=== PATIENT | male | born 1965 | race African-American/Black ===

== ENCOUNTER 2017-03-12 17:08 | Emergency (ER) | payer OTHER ==
[~2017-03-12] VITALS: Ht 175.2 cm; Wt 98.4 kg
[2017-03-12] MEDS ORDERED: QBRELIS1 MG/1 ML PO (17:13)
== END 2017-03-12 18:09 | disposition home or self-care (01) ==
LOC: ED 17:08
DX: S05.02XA Injury of conjunctiva and corneal abrasion without foreign body, left eye, initial encounter (principal); T26.62XA Corrosion of cornea and conjunctival sac, left eye, initial encounter; F17.200 Nicotine dependence, unspecified, uncomplicated; X58.XXXA Exposure to other specified factors, initial encounter; Y93.89 Activity, other specified; Y92.9 Unspecified place or not applicable; Y99.9 Unspecified external cause status

== ENCOUNTER 2017-05-27 08:40 | Emergency (ER) | payer OTHER ==
[~2017-05-27] VITALS: Ht 175.2 cm; Wt 98.0 kg
[~2017-05-27 08:40] MED LIST: QBRELIS1 MG/1 ML PO
[2017-05-27 10:03] LABS: BASO % 0.3 % (0.0-1.0); EOS # 0.2 10*3/uL (0.0-0.4); EOS % 4.9 % (1.0-4.0); HEMOGLOBIN 14.3 g/dl (14.0-18.0); LYMPH # 1.7 10*3/uL (1.3-4.4); LYMPH % 43.8 % (27.0-41.0); MEAN CELL VOLUME 85.4 fl (80.0-94.0); MEAN CORPUSCULAR HGB 27.1 pg (27.0-31.0); MEAN CORPUSCULAR HGB CONC 31.8 g/dl (33.0-37.0); MEAN PLATELET VOLUME 11.8 fl (9.6-12.3); MONO # 0.4 10*3/uL (0.1-1.0); MONO % 11.3 % (3.0-9.0); NEUT # 1.6 10*3/uL (2.3-7.9); NEUT % 39.7 % (47.0-73.0); PLATELET COUNT AUTOMATED 177 10*3/uL (130-400); RED BLOOD COUNT 5.27 10*6/uL (4.50-5.90); RED CELL DISTRI WIDTH 15.2 % (0-14.5); WHITE BLOOD COUNT 3.9 10*3/uL (4.8-10.8)
[2017-05-27 10:20] LABS: ALBUMIN 3.3 gm/dl (3.1-4.5); BUN 13 mg/dl (7-24); CHLORIDE 106 mmol/L (98-107); CREATININE 1.34 mg/dL (0.70-1.30); MAGNESIUM 2.2 mg/dL (1.5-2.1); POTASSIUM 4.6 mmol/L (3.5-5.1); SGOT/AST 30 IU/L (3-35); SGPT/ALT 28 U/L (12-78); SODIUM 140 mmol/L (136-145); TOTAL PROTEIN 7.4 gm/dL (6.4-8.2)
[2017-05-27 10:46] LABS: ALKALINE PHOSPHATASE 118 U/L (45-117)
[2017-05-27] MEDS ORDERED: PRINIVIL10 MG PO (16:28)
== END 2017-05-27 20:08 | disposition home or self-care (01) ==
LOC: ED 08:40
PROVIDERS: Nurse Practitioner Family
DX: E07.9 Disorder of thyroid, unspecified (principal); R03.0 Elevated blood-pressure reading, without diagnosis of hypertension; F17.200 Nicotine dependence, unspecified, uncomplicated; Z98.890 Other specified postprocedural states; Z79.899 Other long term (current) drug therapy

== ENCOUNTER 2017-09-03 12:57 | Inpatient (IN) | payer OTHER ==
[2017-09-03] VITALS (8 sets, daily range): BP systolic 123–150; BP diastolic 81–103
[~2017-09-03] VITALS: Ht 177.8 cm; Wt 95.3 kg
--- NOTE | ~2017-09-03 | PR ---
[place], [place] PROGRESS NOTE NAME: GABBY PARISI UNIT #: [id number] ROOM: 415 DOCTOR: JOHN CERDA MD BIRTHDATE: [birth year] DOS: 09/06/2017 CARDIOLOGY PROGRESS NOTE SUBJECTIVE: The patient was seen in the Cardiology Department today, 09/06/2017 prior to his stress test. He is a 52-year-old man with multiple coronary risk factors including hypertension and cigarette abuse. He came into the hospital with blood pressure out of control and in acute renal injury. He was admitted to the hospital and ruled out for myocardial infarction. Since his admission, he has had 1 more episode of chest pain, which resolved spontaneously. He otherwise feels well. PHYSICAL EXAMINATION: VITAL SIGNS: Today his pulse is 54 and regular, blood pressure is 118/50. He is afebrile. NECK: Supple. He has no jugular distention. Carotids are full. No bruits. LUNGS: Respirations were unlabored. His chest was clear to auscultation and percussion. HEART: Had a regular rhythm. He had a fourth heart sound, but no third heart sound. The PMI is not displaced. ABDOMEN: Benign. EXTREMITIES: Showed no edema. Thus far, he shows no signs of an acute coronary syndrome, but his risk factors and description of his symptoms makes a cardiac etiology likely. IMPRESSION: 1. Precordial chest pain. 2. Hypertension, out of control, now doing much better on medical therapy. 3. Acute renal insufficiency and injury. 4. Bradycardia. 5. History of thyroid mass. 6. Hyperlipidemia. 7. Cigarette abuse. PLAN: We will proceed with an exercise myocardial stress test. Further recommendations will depend upon the results of the stress test. We thank the hospitalist physicians for asking our advice regarding his care. [place], [place] PROGRESS NOTE NAME: GABBY PARISI UNIT #: [id number] ROOM: 415 DOCTOR: JOHN CERDA MD BIRTHDATE: [birth year] JOHN CERDA MD CM:PNTRANS [id number] JOHN CERDA MD 09/06/17 1140 interface
[~2017-09-03 12:57] MED LIST changes: +PRINIVIL10 MG PO
[2017-09-03] MEDS ORDERED: LISINOPRIL10 M1 PO (13:06)
[2017-09-03 13:17] LABS: BASO % 0.4 % (0.0-1.0); EOS # 0.1 10*3/uL (0.0-0.4); EOS % 2.5 % (1.0-4.0); HEMATOCRIT 46.4 % (42.0-52.0); HEMOGLOBIN 14.8 g/dl (14.0-18.0); LYMPH # 1.9 10*3/uL (1.3-4.4); LYMPH % 36.5 % (27.0-41.0); MEAN CELL VOLUME 84.8 fl (80.0-94.0); MEAN CORPUSCULAR HGB 27.1 pg (27.0-31.0); MEAN CORPUSCULAR HGB CONC 31.9 g/dl (33.0-37.0); MEAN PLATELET VOLUME 10.7 fl (9.6-12.3); MONO # 0.4 10*3/uL (0.1-1.0); MONO % 7.8 % (3.0-9.0); NEUT # 2.7 10*3/uL (2.3-7.9); NEUT % 52.6 % (47.0-73.0); PLATELET COUNT AUTOMATED 218 10*3/uL (130-400); RED BLOOD COUNT 5.47 10*6/uL (4.50-5.90); RED CELL DISTRI WIDTH 15.8 % (0-14.5); WHITE BLOOD COUNT 5.1 10*3/uL (4.8-10.8)
[2017-09-03 13:34] LABS: ALBUMIN 3.6 gm/dl (3.1-4.5); ALKALINE PHOSPHATASE 108 U/L (45-117); BUN 16 mg/dl (7-24); CHLORIDE 105 mmol/L (98-107); CREATININE 1.47 mg/dL (0.70-1.30); POTASSIUM 3.9 mmol/L (3.5-5.1); SGOT/AST 19 IU/L (3-35); SGPT/ALT 30 U/L (12-78); SODIUM 141 mmol/L (136-145); TOTAL PROTEIN 8.1 gm/dL (6.4-8.2); TROPONIN I < 0.015 ng/ml (<0.045)
[2017-09-04] VITALS: BP 129/81
[2017-09-04 06:39] LABS: BASO % 0.5 % (0.0-1.0); EOS # 0.2 10*3/uL (0.0-0.4); EOS % 4.1 % (1.0-4.0); HEMOGLOBIN 13.6 g/dl (14.0-18.0); LYMPH # 1.9 10*3/uL (1.3-4.4); LYMPH % 49.4 % (27.0-41.0); MEAN CELL VOLUME 85.7 fl (80.0-94.0); MEAN CORPUSCULAR HGB 27.8 pg (27.0-31.0); MEAN CORPUSCULAR HGB CONC 32.4 g/dl (33.0-37.0); MEAN PLATELET VOLUME 10.5 fl (9.6-12.3); MONO # 0.3 10*3/uL (0.1-1.0); MONO % 8.4 % (3.0-9.0); NEUT # 1.5 10*3/uL (2.3-7.9); NEUT % 37.3 % (47.0-73.0); PLATELET COUNT AUTOMATED 196 10*3/uL (130-400); RED CELL DISTRI WIDTH 15.7 % (0-14.5); WHITE BLOOD COUNT 3.9 10*3/uL (4.8-10.8)
[2017-09-04 06:57] LABS: ALKALINE PHOSPHATASE 88 U/L (45-117); BUN 14 mg/dl (7-24); CHLORIDE 107 mmol/L (98-107); CHOLESTEROL 148 mg/dL (<200); FREE T4 0.92 ng/dl (0.76-1.46); HDL CHOLESTEROL 49 mg/dl (40-60); LDL CHOLESTEROL 86 mg/dL (9-159); PHOSPHOROUS 3.9 mg/dL (2.5-4.9); POTASSIUM 3.8 mmol/L (3.5-5.1); SGOT/AST 13 IU/L (3-35); SGPT/ALT 22 U/L (12-78); SODIUM 141 mmol/L (136-145); TOTAL PROTEIN 6.6 gm/dL (6.4-8.2); TRIGLYCERIDES 63 mg/dl (<150); VLDL CHOLESTEROL 13 mg/dL (6-40)
[2017-09-04 07:02] LABS: THYROID STIM HORMONE (HS) 0.945 uIU/ml (0.358-4.75)
[2017-09-04 08:10] VITALS: BP 142/90
[2017-09-04 08:55] LABS: VITAMIN D, 25-HYDROXY 9.1 ng/mL (30-100)
[2017-09-04 12:01] VITALS: BP 142/92
[2017-09-04 16:00] VITALS: BP 136/88
[2017-09-04 20:00] VITALS: BP 143/90
[2017-09-05] VITALS: BP 140/96
[2017-09-05 08:00] VITALS: BP 142/90
[2017-09-05 12:00] VITALS: BP 148/92
[2017-09-05 16:00] VITALS: BP 129/87
[2017-09-05 20:00] VITALS: BP 137/90
[2017-09-06] VITALS: BP 124/85
[2017-09-06 08:00] VITALS: BP 118/50
[2017-09-06 12:00] VITALS: BP 137/87
[2017-09-06 16:00] VITALS: BP 128/81
[2017-09-06] MEDS ORDERED: AMLODIPINE BESYL5 MG PO (16:48)
[2017-09-06] MEDS ORDERED: VITAMIN D5000 UNI1 PO (16:48)
[2017-09-06] MEDS ORDERED: Zestril,Prinivi40 MG PO (16:48)
[2017-09-06] MEDS ORDERED: ASPIRIN CHEWABL81 M1 PO (16:48)
== END 2017-09-06 18:07 | disposition home or self-care (01) | DRG 391 ==
LOC: ED 12:57 → 4E 14:04 → EDHOLD 14:04 → 4E 14:23
PROVIDERS: Internal Medicine; Student in an Organized Health Care Education/Training Program
PROC: 4A02XM4 Measurement of Cardiac Total Activity, External Approach (ICD-10-PCS; principal; 2017-09-06)
DX: K21.9 Gastro-esophageal reflux disease without esophagitis (principal); N17.0 Acute kidney failure with tubular necrosis; E44.0 Moderate protein-calorie malnutrition; R20.2 Paresthesia of skin; H53.8 Other visual disturbances; E04.9 Nontoxic goiter, unspecified; E78.5 Hyperlipidemia, unspecified; I10 Essential (primary) hypertension; R00.1 Bradycardia, unspecified; E07.9 Disorder of thyroid, unspecified; F17.210 Nicotine dependence, cigarettes, uncomplicated; F41.9 Anxiety disorder, unspecified; E55.9 Vitamin D deficiency, unspecified; D72.819 Decreased white blood cell count, unspecified; R73.03 Prediabetes; Z68.30 Body mass index [BMI] 30.0-30.9, adult; Z79.899 Other long term (current) drug therapy; Z82.49 Family history of ischemic heart disease and other diseases of the circulatory system